=== PATIENT | male | born 2000 | race Caucasian/White ===

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

== ENCOUNTER 2022-05-08 01:55 | Emergency (ER) | payer BC ==
[2022-05-08 03:04] LABS: BASO # 0.03 K/mm3 (0.02-0.10); EOS # 0.15 K/mm3 (0.04-0.40); EOS % 1.3 % (0.0-4.0); HEMATOCRIT 39.7 % (36.0-47.0); HEMOGLOBIN 14.1 g/dL (12.5-16.1); LYMPH# 4.31 K/mm3 (1.50-4.00); MEAN CELL VOLUME 72 fl (78-95); MEAN CORPUSCULAR HEMOGLOBIN 26 pg (26-32); MEAN CORPUSCULAR HGB CONC 36 g/dL (33-37); MEAN PLATELET VOLUME 9.9 fl (7.4-10.4); MONO # 1.07 K/mm3 (0.20-0.80); NEU # 5.89 K/mm3 (1.40-6.50); PLATELET COUNT 285 K/mm3 (130-400); RED BLOOD COUNT 5.48 M/mm3 (4.20-5.60); RED CELL DISTRIBUTION WIDTH 13.9 % (11.5-14.5); WHITE BLOOD COUNT 11.5 K/mm3 (4.8-10.8)
[2022-05-08 03:05] LABS: ALBUMIN 4.3 g/dL (3.5-5.0); POTASSIUM 3.9 mmol/L (3.5-5.1); SODIUM 137 mmol/L (136-145)
[2022-05-08 03:07] LABS: GLUCOSE 97 mg/dL (75-110)
[2022-05-08 03:08] LABS: CARBON DIOXIDE 20 mmol/L (22-29); TOTAL PROTEIN 6.8 g/dL (6.4-8.3)
[2022-05-08 03:09] LABS: TOTAL BILIRUBIN 0.3 mg/dL (0.2-1.2)
[2022-05-08 03:11] LABS: ALCOHOL IN-HOUSE < 10 mg/dL (<10)
[2022-05-08 03:13] LABS: AST-SGOT 22 U/L (5-34)
[2022-05-08 03:14] LABS: ALT/SGPT 52 U/L (0-55)
[2022-05-08 03:16] LABS: ACETAMINOPHEN < 1 ug/mL
[2022-05-08 04:07] LABS: URINE COLOR YELLOW
[2022-05-08 04:08] LABS: URINE APPEARANCE CLEAR; URINE BILIRUBIN NEGATIVE (NEGATIVE); URINE BLOOD NEGATIVE (NEGATIVE); URINE GLUCOSE NEGATIVE (NEGATIVE); URINE KETONE NEGATIVE (NEGATIVE); URINE LEUKOCYTE ESTERASE TRACE (NEGATIVE); URINE MUCUS PRESENT (NOT PRESENT); URINE NITRATE NEGATIVE (NEGATIVE); URINE PROTEIN(semi-quant) NEGATIVE (NEGATIVE); URINE UROBILINOGEN NORMAL (NORMAL)
[2022-05-08 06:13] VITALS: BP 130/78
== END 2022-05-08 06:14 | disposition home or self-care (01) ==
LOC: ED 01:55
PROVIDERS: Physician Assistant
DX: F32.A Depression, unspecified (principal)

== ENCOUNTER → 2024-09-15 | Outpatient (CLI) | payer BC | LOC: RAD 11:50 | DX: M54.2 Cervicalgia (principal) ==